=== PATIENT | male | born 1985 | race Two or more races ===

== ENCOUNTER → 2018-08-05 | Outpatient (CLI) | payer BC ==
[~2018-08-05] MED LIST: None per pt
[2018-08-05 09:21] LABS: MICROSCOPIC NOT IND
[2018-08-05 09:28] LABS: ANION GAP 3 mmol/L (5-15); CALCIUM 9.5 mg/dL (8.5-10.1); CHLORIDE 105 mmol/L (98-107); CREATININE 1.08 mg/dL (0.7-1.3)
[2018-08-05 09:38] LABS: BASOPHILS # (AUTO) 0.04 x10^3/uL (0-0.1); BASOPHILS % (AUTO) 1 % (0-1); EOSINOPHILS # (AUTO) 0.08 x10^3/uL (0-0.4); EOSINOPHILS % (AUTO) 1 % (1-7); LYMPHOCYTES # (AUTO) 1.23 x10^3/uL (1-3.4); LYMPHOCYTES % (AUTO) 21 % (22-44); MD NO; MEAN CORPUSCULAR HEMOGLOBIN 28.9 pg (27.5-34.5); MEAN CORPUSCULAR HGB CONC 33.5 g/dL (33.2-36.2); MEAN CORPUSCULAR VOLUME 86.2 fL (81-97); MEAN PLATELET VOLUME 9.4 fL (7.4-10.4); MONOCYTES # (AUTO) 0.67 x10^3/uL (0.2-0.8); MONOCYTES % (AUTO) 12 % (2-9); NEUTROPHILS # (AUTO) 3.75 x10^3/uL (1.8-6.8); NEUTROPHILS % (AUTO) 65 % (42-75); PLATELET COUNT 165 x10^3/uL (130-400); RED BLOOD COUNT 6.08 x10^6/uL (4.38-5.82); RED CELL DISTRIBUTION WIDTH 12.9 % (9.4-14.8)
== END | disposition home or self-care (01) ==
LOC: STAR 08:13
PROVIDERS: ATTEND Urology
DX: Z01.818 Encounter for other preprocedural examination (principal); Z41.2 Encounter for routine and ritual male circumcision
CPT/HCPCS: 36415; 80048; 81003; 85025; 87086; 93005

== ENCOUNTER 2018-08-12 09:36 | Day surgery (SDC) | payer BC ==
[2018-08-05 08:43] VITALS: BP 129/80
[~2018-08-12] VITALS: Ht 175.3 cm; Wt 88.0 kg
[2018-08-12] MEDS ORDERED: LACTATED RINGERS 1,000 ML IV SCH (10:18)
[2018-08-12] MEDS ORDERED: ACETAMINOPHEN 500 MG TABLET PO ONE (10:30)
[2018-08-12] MEDS ORDERED: LABETALOL 5MG/ML, 20ML IV PRN (11:00)
[2018-08-12] MEDS ORDERED: MEPERIDINE/PF 25MG/0.5ML IVPush PRN (11:00)
[2018-08-12] MEDS ORDERED: HYDROmorphone 1 MG/ML, 1ML IV PRN (11:00)
[2018-08-12] MEDS ORDERED: PROCHLORPERAZINE 5 MG/ML, 2ML IV PRN (11:00)
[2018-08-12] MEDS ORDERED: OXYcodone 5 MG/5 ML ORAL.SOL UDC PO PRN (11:00)
[2018-08-12] MEDS ORDERED: DIPHENHYDRAMINE 50 MG/ML, 1ML IVPush PRN (11:00)
[2018-08-12] MEDS ORDERED: hydrALAzine 20 MG/ML, 1ML IV PRN (11:00)
[2018-08-12] MEDS ORDERED: FENTANYL PF 100 MCG/2ML IV PRN (11:00)
[2018-08-12] MEDS ORDERED: NEOSPORIN OINT, 15GM ONE (11:05)
[2018-08-12] MEDS ORDERED: BUPIVACAINE 0.25% ONE (11:05)
[2018-08-12] MEDS ORDERED: FENTANYL PF 100 MCG/2ML ONE ×2 (11:28→12:02)
[2018-08-12] MEDS ORDERED: SUCCINYLCHOLINE 20 MG/ML, 10ML ONE (11:34)
[2018-08-12] MEDS ORDERED: KETOROLAC 30 MG/1 ML ONE (11:34)
[2018-08-12] MEDS ORDERED: ONDANSETRON 2MG/ML, 2ML ONE (12:27)
[2018-08-12] MEDS ORDERED: CEFAZOLIN 1,000 MG ONE (12:27)
[2018-08-12] MEDS ORDERED: DEXAMETHASONE 4 MG/ML, 1ML ONE (12:27)
[2018-08-12] MEDS ORDERED: PROPOFOL 10 MG/ML, 20ML ONE (12:27)
== END 2018-08-12 14:20 | disposition home or self-care (01) ==
LOC: OUT 09:36
PROVIDERS: ATTEND Urology
DX: N47.1 Phimosis (principal)
CPT/HCPCS: 54161; 88304; J0330; J0690; J1100; J1885; J2405; J2704; J3010; J3490; J7120